=== PATIENT | female | born 1995 | race Hispanic/Latino ===

== ENCOUNTER 2016-11-28 20:51 | Emergency (ER) | payer OTHER ==
[~2016-11-28] VITALS: Ht 147.3 cm; Wt 56.7 kg
[~2016-11-28 20:51] MED LIST: PERCOCET 5-3251 EACH PO; PRENATABS FA T1 EACH PO; PSEUDOEPHEDRINE30 M1 PO; ZOFRAN4 M2 PO
[2016-11-28 21:21] VITALS: BP 106/74
--- NOTE | 2016-11-28 21:32 | ED EAR COMPLAINT ---
History of Present Illness General Chief Complaint: Ear Complaints Stated Complaint: EAR ACHE Source: patient, family Exam Limitations: no limitations Vital Signs & Intake/Output Vital Signs & Intake/Output Vital Signs Date Time Temp Pulse Resp B/P Pulse O2 O2 Flow FiO2 Ox Delivery Rate 11/28 2120 97.4 80 18 106/74 99 Room Air ED Intake and Output 11/29 0000 11/28 1200 Intake Total Output Total Balance Patient 125 lb Weight Allergies Coded Allergies: ibuprofen (Intermediate, HIVES 11/18/15) Reconcile Medications Fluticasone Propionate (Flonase Allergy Relief) 50 MCG/ACTUATION SPRAY.SUSP 2 SPRAY INH DAILY NASAL CONGESTION Ondansetron HCl (Zofran) 4 MG TABLET 1 TAB PO Q6P PRN NAUSEA/VOMITING Oxycodone HCl/Acetaminophen (Percocet 5-325 MG Tablet) 1 EACH TABLET 1-2 TAB PO Q6P PRN PAIN Vit No.78/Iron/FA (Prenatabs FA Tablet) 1 EACH TABLET 1 TAB PO DAILY (Reported) Pseudoephedrine HCl 30 MG TABLET 1 TAB PO ALLERGIES (Reported) Triage Note: RECEIVED 21 YO FEMALE C/O BILATERAL EAR PAIN, L WORSE THAN RIGHT WITH COLD SYMPTOMS. Triage Nurses Notes Reviewed? yes : No Patient currently breastfeeds: No HPI: Patient is a 21-year-old female presents complaining of bilateral ear pain left greater than right and nasal congestion. Symptoms onset yesterday. Pain is moderate to severe. Patient has been using generic of Vicks with no improvement. Positive subjective fevers. Patient denies sore throat, cough, dyspnea. (DAPHNIE LAO) Past History Travel History Traveled to [place] past 21 day No Medical History Any Pertinent Medical History? 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 No (DAPHNIE LAO) Review of Systems Review of Systems Constitutional: Reports: fever. EENTM: Reports: ear pain, nasal congestion. Respiratory: Denies: cough, short of breath. Cardiovascular: Denies: chest pain. GI: Denies: abdominal pain, vomiting. Genitourinary: Reports: no symptoms. Musculoskeletal: Reports: no symptoms. Skin: Reports: no symptoms. Neurological/Psychological: Reports: no symptoms. Hematologic/Endocrine: Reports: no symptoms. Immunologic/Allergic: Reports: no symptoms. (DAPHNIE LAO) Physical Exam Physical Exam General Appearance: well developed/nourished, alert, awake Head: atraumatic, normal appearance Eyes: Bilateral: normal appearance, PERRL, EOMI. Ears: Bilateral: canal normal, Tympanic normal, other (clear fluid posterior to TM's). Nose: normal inspection Mouth/Throat: normal mouth inspection, pharynx normal Neck: normal inspection, supple, full range of motion, left anterior cervical lymphadenopathy Cardiovascular/Respiratory: normal breath sounds, regular rate/rhythm, no respiratory distress Back: normal inspection, normal range of motion Neurologic/Psych: no motor/sensory deficits, awake, alert, oriented x 3, normal gait, normal mood/affect Skin: intact, normal color, warm/dry (DAPHNIE LAO) Progress Differential Diagnoses I considered the following diagnoses in my evaluation of the patient: otitis media, otitis externa, sinusitis, viral uri Plan of Care: Patient afebrile, nontoxic-appearing. Clear fluid posterior to bilateral tympanic membranes. Likely viral upper respiratory infection. Will treat symptomatically. Initial ED EKG: none (DAPHNIE LAO) Departure Departure Time of Disposition: 2139 Disposition: HOME OR SELF CARE Condition: Stable Clinical Impression Primary Impression: Viral upper respiratory infection Secondary Impressions: Earache symptoms in both ears Referrals: YANCY OCONNELL MD (PCP/Family) Additional Instructions: Take Tylenol as directed for pain and fevers. Drink plenty of fluids and rest. Sudafed as directed to help with congestion and your symptoms. Follow up with your doctor if no improvement by Thursday. Return to the ER if worsening of symptoms. Departure Forms: Customer Survey General Discharge Information Prescriptions: Current Visit Scripts Fluticasone Propionate (Flonase Allergy Relief) 2 SPRAY INH DAILY #1 BOT (DAPHNIE LAO) PA/CARBURIZER Co-Sign Statement Statement: ED Attending supervision documentation- [] I saw and evaluated the patient. I have also reviewed all the pertinent lab results and diagnostic results. I agree with the findings and the plan of care as documented in the PA's/CARBURIZER's documentation. [x] I have reviewed the ED Record and agree with the PA's/CARBURIZER's documentation. [] Additions or exceptions (if any) to the PAs/CARBURIZER's note and plan are summarized below: [] (JONATAN THOMPSON,LILIA Bianchi)
[2016-11-28] MEDS ORDERED: FLONASE ALLERG9.9 ML INH (21:42)
== END 2016-11-28 22:12 ==
LOC: ERH 20:51
DX: J06.9 Acute upper respiratory infection, unspecified (principal); H92.03 Otalgia, bilateral

== ENCOUNTER 2016-12-20 07:43 | Emergency (ER) | payer OTHER ==
[~2016-12-20] VITALS: Ht 147.3 cm; Wt 56.2 kg
[~2016-12-20 07:43] MED LIST changes: +FLONASE ALLERG9.9 ML INH
[2016-12-20 08:39] LABS: ABSOLUTE BASOPHIL COUNT 0 /CUMM (0.0-0.2); ABSOLUTE EOSINOPHIL COUNT 0.1 /CUMM (0.0-0.7); ABSOLUTE GRANULOCYTE CT 12.7 /CUMM (1.4-6.5); ABSOLUTE LYMPH COUNT 1.1 /CUMM (1.2-3.4); ABSOLUTE MONOCYTE COUNT 0.5 /CUMM (0.10-0.60); BASOPHIL % 0 % (0.0-2.0); EOSINOPHIL % 0.8 % (0-5); GRANULOCYTE % 88.3 % (42.2-75.2); HEMATOCRIT 39.1 % (37-47); MEAN CORPUSCULAR HGB 27.7 PG (27.0-31.0); MEAN CORPUSCULAR VOLUME 84.2 FL (81.0-99.0); MEAN PLATELET VOLUME 12.3 FL (7.4-10.4); RBC DISTRIBUTION WIDTH 14.5 % (11.5-14.5); RED BLOOD CELL CT 4.64 /CUMM (4.20-5.40); WHITE BLOOD CELL COUNT 14.3 /CUMM (4.8-10.8)
--- NOTE | 2016-12-20 08:52 | ED GENERAL ADULT ---
History of Present Illness General Chief Complaint: Abdominal Pain/Flank Pain Stated Complaint: ABD PAIN X 1DY Source: patient, family, old records Exam Limitations: no limitations Vital Signs & Intake/Output Vital Signs & Intake/Output Vital Signs Date Time Temp Pulse Resp B/P B/P Pulse O2 O2 Flow FiO2 Mean Ox Delivery Rate 12/20 1143 98.7 82 17 118/68 100 Room Air 12/20 0747 98.2 80 18 112/72 98 Room Air Room Air Allergies Coded Allergies: ibuprofen (Intermediate, HIVES 11/18/15) Reconcile Medications Fluticasone Propionate (Flonase Allergy Relief) 50 MCG/ACTUATION SPRAY.SUSP 2 SPRAY INH DAILY NASAL CONGESTION Hyoscyamine Sulfate (Levsin-Sl) 0.125 MG TAB.SUBL 1-2 TAB SL Q4P PRN abdominal pain Ondansetron (Zofran Odt) 4 MG TAB.RAPDIS 1 TAB SL TID nausea Ondansetron (Zofran Odt) 4 MG TAB.RAPDIS 1 TAB SL TID PRN nausea Ondansetron HCl (Zofran) 4 MG TABLET 1 TAB PO Q6P PRN NAUSEA/VOMITING Oxycodone HCl/Acetaminophen (Percocet 5-325 MG Tablet) 1 EACH TABLET 1-2 TAB PO Q6P PRN PAIN Vit No.78/Iron/FA (Prenatabs FA Tablet) 1 EACH TABLET 1 TAB PO DAILY (Reported) Pseudoephedrine HCl 30 MG TABLET 1 TAB PO ALLERGIES (Reported) Tramadol HCl (Ultram) 50 MG TABLET 1-2 TAB PO Q6PRN PRN severe pain Triage Note: TRIAGE: 21 Y/O FEMALE PRESENTS C/O 10/10 UPPER ABDOMINAL PAIN SINCE LAST NIGHT. ALSO REPORTS +N/-V/+D; LAST BM THIS MORNING +DIARRHEA. AFEBRILE IN TRIAGE. DENIES SICK CONTACTS. Triage Nurses Notes Reviewed? yes Onset: Morning Duration: hour(s):, constant, continues in ED Timing: recent history Injury Environment: home Severity: moderate, severe Modifying Factors: Worsens With: eating. Associated Symptoms: back pain LMP (ages 10-50): unknown : No Patient currently breastfeeds: No HPI: 8 hours prior to admission patient complains of epigastric pain described as achy moderate to severe radiating to her umbilicus and back constant associated with nausea diarrhea. She reports it is kind of like her kidney stone pain in the past. She denies fever chills chest pain cough shortness of breath headache dysuria rash bleeding . Past History Travel History Traveled to [place] past 21 day No Medical History Any Pertinent Medical History? 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 No Review of Systems Review of Systems Constitutional: Reports: no symptoms. EENTM: Reports: no symptoms. Respiratory: Reports: no symptoms. Cardiovascular: Reports: no symptoms. GI: Reports: see HPI, abdominal pain, diarrhea, nausea. Genitourinary: Reports: no symptoms. Musculoskeletal: Reports: see HPI, back pain. Skin: Reports: no symptoms. Neurological/Psychological: Reports: no symptoms. Hematologic/Endocrine: Reports: no symptoms. Immunologic/Allergic: Reports: no symptoms. All Other Systems: Reviewed and Negative Physical Exam Physical Exam General Appearance: well developed/nourished, alert, awake, anxious, mild distress, obese Head: atraumatic, normal appearance Eyes: Bilateral: normal appearance, PERRL, EOMI. Ears, Nose, Throat: normal pharynx, normal ENT inspection Neck: normal inspection, supple, full range of motion Respiratory: normal breath sounds, chest non-tender, no respiratory distress, quiet respiration, lungs clear Cardiovascular: regular rate/rhythm, normal peripheral pulses, norml femoral pulses equa Peripheral Pulses: 4+ carotid (R), 4+ carotid (L) Gastrointestinal: normal bowel sounds, soft, non-tender, no organomegaly Back: normal inspection, normal range of motion Extremities: normal inspection, normal capillary refill, normal range of motion, no edema Neurologic/Psych: no motor/sensory deficits, awake, alert, oriented x 3, normal gait, normal mood/affect, machine chain maker II-XII nml as tested Reflexes: 2+: bicep (R), bicep (L). Skin: intact, normal color, warm/dry Lymphatic: no anterior cervical flower Core Measures ACS in differential dx? No CVA/TIA Diagnosis: No Severe Sepsis Present: No Septic Shock Present: No Progress Differential Diagnoses I considered the following diagnoses in my evaluation of the patient: Biliary colic renal colic gastroenteritis UTI Plan of Care: Orders Procedure Date/time Status URINE 12/20 822 Complete URINALYSIS 12/20 822 Complete COMPREHENSIVE METABOLIC PANEL 12/21 799 Complete CBC WITHOUT DIFFERENTIAL 12/21 799 Complete Laboratory Tests 12/20/16 1029: Urinalysis LIGHT H, Urine Color YEL, Urine Clarity HAZY H, Urine pH 6.0, Ur Specific [place] 1.010, Urine Protein NEG, Urine Ketones NEG, Urine Nitrite NEG, Urine Bilirubin NEG, Urine Urobilinogen 0.2, Ur Leukocyte Esterase TRACE H, Ur Microscopic SEDIMENT EXAMINED, Ur Epithelial Cells FEW, Urine Hemoglobin MOD H, Urine Glucose NEG, Urine Test NEGATIVE 12/20/16 0805: Anion Gap 16, Estimated GFR > 60, BUN/Creatinine Ratio 22.5, Glucose 117 H, Calcium 9.3, Total Bilirubin 1.0, AST 49 H, ALT 68 H, Alkaline Phosphatase 134 H, Total Protein 7.4, Albumin 4.5, Globulin 2.9, Albumin/Globulin Ratio 1.6, CBC w Diff NO MAN DIFF REQ, RBC 4.64, MCV 84.2, MCH 27.7, RDW 14.5, MPV 12.3 H, Gran % 88.3 H, Lymphocytes % 7.7 L, Monocytes % 3.2, Eosinophils % 0.8, Basophils % 0 L, Absolute Granulocytes 12.7 H, Absolute Lymphocytes 1.1 L, Absolute Monocytes 0.5, Absolute Eosinophils 0.1, Absolute Basophils 0, PUBS MCHC 33.0 Initial ED EKG: none Comments: Diagnostic imaging ordered mother deferred as grandfather is in town. Ultrasound ordered as outpatient. Departure Departure Time of Disposition: 1124 Disposition: HOME OR SELF CARE Condition: Stable Clinical Impression Primary Impression: Abdominal pain Qualifiers: Abdominal location: epigastric Qualified Code: R10.13 - Epigastric pain Secondary Impressions: Biliary colic Referrals: YANCY OCONNELL MD (PCP/Family) Departure Forms: Customer Survey General Discharge Information Prescriptions: Current Visit Scripts Hyoscyamine Sulfate (Levsin-Sl) 1-2 TAB SL Q4P PRN abdominal pain #30 TAB Ondansetron (Zofran Odt) 1 TAB SL TID #10 TAB Ondansetron (Zofran Odt) 1 TAB SL TID PRN nausea #10 TAB Tramadol HCl (Ultram) 1-2 TAB PO Q6PRN PRN severe pain #30 TAB Critical Care Note Critical Care Note Critical Care Time: non-applicable
[2016-12-20 08:54] LABS: PLATELET COUNT 233 /CUMM (130-400)
[2016-12-20] MEDS ORDERED: ZOFRAN ODT4 M1 SL ×2 (11:28→11:30)
[2016-12-20] MEDS ORDERED: LEVSIN-SL0.125 MG SL (11:28)
[2016-12-20] MEDS ORDERED: ULTRAM50 M1 PO (11:30)
[2016-12-20 11:43] VITALS: BP 118/68
== END 2016-12-20 11:25 ==
LOC: ERH 07:43
PROVIDERS: Emergency Medicine
DX: K80.50 Calculus of bile duct without cholangitis or cholecystitis without obstruction (principal); R10.13 Epigastric pain
CPT/HCPCS: 81001; 81025; 96374; 96375; J0131; J2405

== ENCOUNTER 2017-03-12 18:33 | Emergency (ER) | payer OTHER ==
[~2017-03-12 18:33] MED LIST changes: +LEVSIN-SL0.125 MG SL; +ULTRAM50 M1 PO; +ZOFRAN ODT4 M1 SL
[2017-03-12 19:04] LABS: ABSOLUTE BASOPHIL COUNT 0 /CUMM (0.0-0.2); ABSOLUTE EOSINOPHIL COUNT 0.2 /CUMM (0.0-0.7); ABSOLUTE GRANULOCYTE CT 10.2 /CUMM (1.4-6.5); ABSOLUTE LYMPH COUNT 0.7 /CUMM (1.2-3.4); ABSOLUTE MONOCYTE COUNT 0.4 /CUMM (0.10-0.60); BASOPHIL % 0.1 % (0.0-2.0); EOSINOPHIL % 1.3 % (0-5); HEMATOCRIT 41.7 % (37-47); MEAN CORPUSCULAR HGB 27.9 PG (27.0-31.0); MEAN CORPUSCULAR HGB CONC 32.9 G/DL (33.0-37.0); MEAN PLATELET VOLUME 11.3 FL (7.4-10.4); PLATELET COUNT 208 /CUMM (130-400); RBC DISTRIBUTION WIDTH 13.6 % (11.5-14.5); RED BLOOD CELL CT 4.91 /CUMM (4.20-5.40); WHITE BLOOD CELL COUNT 11.4 /CUMM (4.8-10.8)
--- NOTE | 2017-03-12 21:35 | ED GI/GU/ABDOMINAL COMPLAINT ---
History of Present Illness General Chief Complaint: Abdominal Pain/Flank Pain Stated Complaint: "PEDRO PABLO BEEN THROWING UP FOR THE PASS HOUR" Source: patient, family, old records Exam Limitations: no limitations Vital Signs & Intake/Output Vital Signs & Intake/Output Vital Signs Date Time Temp Pulse Resp B/P B/P Pulse O2 O2 Flow FiO2 Mean Ox Delivery Rate 03/123 98.2 95 20 99/57 100 Room Air 03/12 2113 98 Room Air 03/12 1843 98.1 117 16 122/83 98 Room Air Allergies Coded Allergies: ibuprofen (Intermediate, HIVES 11/18/15) Reconcile Medications Fluticasone Propionate (Flonase Allergy Relief) 50 MCG/ACTUATION SPRAY.SUSP 2 SPRAY INH DAILY NASAL CONGESTION Hyoscyamine Sulfate (Levsin-Sl) 0.125 MG TAB.SUBL 1-2 TAB SL Q4P PRN abdominal pain Ondansetron (Zofran Odt) 4 MG TAB.RAPDIS 1 TAB SL TID nausea Ondansetron (Zofran Odt) 4 MG TAB.RAPDIS 1 TAB SL TID PRN nausea Ondansetron (Zofran Odt) 4 MG TAB.RAPDIS 1 TAB SL TID PRN nausea Ondansetron HCl (Zofran) 4 MG TABLET 1 TAB PO Q6P PRN NAUSEA/VOMITING Oxycodone HCl/Acetaminophen (Percocet 5-325 MG Tablet) 1 EACH TABLET 1-2 TAB PO Q6P PRN PAIN Vit No.78/Iron/FA (Prenatabs FA Tablet) 1 EACH TABLET 1 TAB PO DAILY (Reported) Pseudoephedrine HCl 30 MG TABLET 1 TAB PO ALLERGIES (Reported) Tramadol HCl (Ultram) 50 MG TABLET 1-2 TAB PO Q6PRN PRN severe pain Triage Note: PT TO ED WITH LOWER ABDOMINAL PAIN THAT STARTED TODAY. STATES HAS BEEN VOMITING EARLIER. PT THINKS IT IS FOOD POISONING. ALSO HAD DIARRHEA TODAY SHE REPORTS. Triage Nurses Notes Reviewed? yes ? N Is pt currently ? No Onset: Abrupt Duration: hour(s): Timing: recent history Quality/Severity: moderate Location: generalized abdomen Prior Abdominal Problems: similar symptoms HPI: 21-year-old female with history of chronic abdominal pain x >1 year, kidney stones, presents to emergency department complaining of nausea, vomiting, diarrhea since this morning. She reports 4-5 episodes of vomiting, nonbloody, nonbilious. She reports >5 episodes of diarrhea, nonbloody. She has abdominal pain currently, does not feel different than previous episodes of chronic abdominal pain. She is currently being worked up with her primary care doctor and process controller for her chronic abdominal pain. The patient denies any recent thyroid changes, she ate dinner with her family last night and she is the only one with these symptoms. She feels chills. She denies fevers, headache, sore throat, dysuria, hematuria. (SHYLA MALAGON PA-C) Past History Travel History Traveled to [place] past 21 day No Medical History Any Pertinent Medical History? 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 No (SHYLA MALAGON PA-C) Review of Systems Review of Systems Constitutional: Reports: see HPI. EENTM: Reports: no symptoms. Respiratory: Reports: no symptoms. Cardiovascular: Reports: no symptoms. GI: Reports: see HPI. Genitourinary: Reports: no symptoms. Musculoskeletal: Reports: no symptoms. Skin: Reports: no symptoms. Neurological/Psychological: Reports: no symptoms. Hematologic/Endocrine: Reports: no symptoms. Immunologic/Allergic: Reports: no symptoms. All Other Systems: Reviewed and Negative (HSYLA MALAGON PA-C) Physical Exam Physical Exam Gastrointestinal: SEE BELOW Comments: Well-developed well-nourished person in no acute distress HEENT: HEAD is atraumatic. moist mucous membranes. Neck: Supple, normal range of motion without pain or tenderness Back: Nontender, no CVA tenderness. Full range of motion Cardiovascular: Regular rate and rhythms no murmurs rubs or gallops, normal JVP Respiratory: No respiratory distress. Patient speaking in full complete sentences. Breath sounds clear to auscultation bilaterally: NO W/R/R Abdomen: Soft, tenderness through out all quadrants nondistended, no appreciable organomegaly. Normal bowel sounds. No rebound/guarding, No appreciable enlargement of the abdominal aorta, No ascites. Extremity: No edema, full range of motion of extremities Neuro: Alert oriented x3, motor sensory normal,There were no obvious focal neurologic abnormalities. Skin: No appreciable rash on exposed skin, skin is warm and dry. Psych: Mood and affect is normal, memory and judgment is normal. Core Measures ACS in differential dx? No Severe Sepsis Present: No Septic Shock Present: No (VESNA BOWERS,SHYLA MCCARTNEY) Progress Differential Diagnosis: appendicitis, biliary colic, bowel obstruction, cholecystitis, diverticulitis, ectopic , gastritis, hepatitis, inflamm bowel dis, intrauterine , kidney stone, perforated viscous, SBO, UTI/ pyelo Plan of Care: Orders Procedure Date/time Status URINALYSIS 03/12 2124 Complete LIPASE 03/12 1844 Complete HUMAN BETA HCG SCREEN 03/12 1844 Complete COMPREHENSIVE METABOLIC PANEL 03/12 1844 Complete CBC WITHOUT DIFFERENTIAL 03/12 1844 Complete AMYLASE 03/12 1844 Complete Laboratory Tests 03/12/172156: Urine Color YEL, Urine Clarity HAZY H, Urine pH 6.0, Ur Specific [place] 1.020, Urine Protein NEG, Urine Ketones TRACE H, Urine Nitrite NEG, Urine Bilirubin NEG, Urine Urobilinogen 0.2, Ur Leukocyte Esterase MOD H, Ur Microscopic SEDIMENT EXAMINED, Urine RBC RARE, Urine WBC 15-25 H, Ur Epithelial Cells PACKD H, Urine Bacteria MANY H, Urine Mucus RARE, Urine Hemoglobin NEG, Urine Glucose NEG 03/12/17 1850: Anion Gap 16, Estimated GFR > 60, BUN/Creatinine Ratio 21.3, Glucose 91, Calcium 9.6, Total Bilirubin 2.3 H, AST 149 H, ALT 203 H, Alkaline Phosphatase 182 H , Total Protein 8.0, Albumin 4.9, Globulin 3.1, Albumin/Globulin Ratio 1.6, Amylase 84, Lipase 36, Total Beta HCG NEGATIVE, CBC w Diff NO MAN DIFF REQ, RBC 4.91, MCV 85.0, MCH 27.9, RDW 13.6, MPV 11.3 H, Gran % 89.0 H, Lymphocytes % 6.4 L, Monocytes % 3.2, Eosinophils % 1.3, Basophils % 0.1, Absolute Granulocytes 10.2 H, Absolute Lymphocytes 0.7 L, Absolute Monocytes 0.4, Absolute Eosinophils 0.2, Absolute Basophils 0, PUBS MCHC 32.[address] Rain regarding patient. Will defer imaging at this time at patient had recent ultrasound and is currently in work up with GI specialists. Patient reports significant improvement in her symptoms following IV Zofran and IV fluids. Patient has not vomited since being in the emergency department. Patient's mother is requesting GI referral for local GI doctor as they would not like to travel to [place] to continue to see GI physician there. They will continue to seek care for chronic abdominal pain with primary care and GI doctor. Patient was given a prescription for ODT Zofran to go home with. The patient is in no acute distress, her vital signs are within normal limits, she is well-appearing. The patient will return with any worsening symptoms or concerns. The patient and her mother in agreement with the plan of care. (VESNA BOWERS,SHYLA MCCARTNEY) Initial ED EKG: none (SHYLA MALAGON PA-C) Departure Departure Disposition: HOME OR SELF CARE Condition: Stable Clinical Impression Primary Impression: Nausea & vomiting Secondary Impressions: Abdominal pain, Diarrhea Referrals: TANVIR THOMPSON,ANDIE OCONNELL MD,YANCY (PCP/Family) Additional Instructions: Take Zofran as prescribed as needed for nausea. Initiate a clear liquid diet as tolerated for the next 24 hours. Initiate bland diet (bananas, applesause, rice , toast) after you have tolerated clear liquids without vomiting for 24 hours. Follow-up with GI referral given to today, call the office to make an appointment for next week. Call your primary care doctor to inform them that you're seen and evaluated today. Return with any worsening symptoms or concerns. Please note that there might be incidental findings in your evaluation that are unrelated to the current emergency department visit. Please notify your primary care doctor about this emergency department visit in order to obtain and review all of the testing performed so that these incidental findings can be monitored as needed. If you're unable to follow up as outlined in the discharge instructions please return to the emergency department. Thank you for choosing the [facility] Emergency Department for your care. It was a pleasure to serve you today. Departure Forms: Customer Survey General Discharge Information Prescriptions: Current Visit Scripts Ondansetron (Zofran Odt) 1 TAB SL TID PRN nausea #10 TAB (SHYLA MALAGON PA-C) PA/DIRECTOR OF STUDENT AFFAIRS Co-Sign Statement Statement: ED Attending supervision documentation- I saw and evaluated the patient. I have also reviewed all the pertinent lab results and diagnostic results. I agree with the findings and the plan of care as documented in the PA's/DIRECTOR OF STUDENT AFFAIRS's documentation. x I have reviewed the ED Record and agree with the PA's/DIRECTOR OF STUDENT AFFAIRS's documentation. [] Additions or exceptions (if any) to the PAs/DIRECTOR OF STUDENT AFFAIRS's note and plan are summarized below: [] (JUVE THOMPSON,RM)
[2017-03-12 22:23] VITALS: BP 99/57
[2017-03-12] MEDS ORDERED: ZOFRAN ODT4 M1 SL (23:21)
== END 2017-03-12 23:27 ==
LOC: ERH 18:33
PROVIDERS: Emergency Medicine
DX: R11.2 Nausea with vomiting, unspecified (principal); R19.7 Diarrhea, unspecified; R10.84 Generalized abdominal pain
CPT/HCPCS: 81001; 81025; 96361; 96374; J2405